=== PATIENT | male | born 1955 | race Caucasian/White ===

== ENCOUNTER 2020-05-15 09:49 | Outpatient (CLI) | payer BC, SELFPAY ==
[2020-05-15 10:21] LABS: Basophils Absolute Auto 0.1 K/mm3 (0.0-0.1); Eosinophils Absolute Auto 0.4 K/mm3 (0-0.3); Eosinophils Percent Auto 7.4 % (0-4.4); Hematocrit 45.2 % (42.0-52.0); Hemoglobin 15.2 g/dL (14.0-18.0); Immature Granulocyte Absolute 0.01 K/mm3 (0.00-0.031); Immature Granulocyte Percent A 0.2 % (0-0.5); Lymphocytes Percent Auto 21.9 % (18.3-44.2); Mean Corpuscular HGB Conc 33.6 g/dl (32-36); Mean Corpuscular Volume 92.1 fl (80-100); Mean Platelet Volume 9.9 fl (7.4-10.4); Monocytes Absolute Auto 0.6 K/mm3 (0.1-0.6); Monocytes Percent Auto 10.3 % (2.6-8.5); Neutrophils Absolute Auto 3.5 K/mm3 (1.3-6.7); Neutrophils Percent Auto 59.2 % (45.5-73.1); Platelet Count Result 217 k/mm3 (150-375); Red Blood Count 4.91 M/mm3 (4.6-6.20); Red Cell Distribution Width 13.3 % (11.5-14.5); White Blood Count 5.9 K/mm3 (4.5-10.0)
[2020-05-15 10:32] LABS: Prothrombin Time 12.7 Seconds (11.1-14.7)
[2020-05-15 10:33] LABS: Partial Thromboplastin Time 24.9 SECONDS (22.3-36.8)
[2020-05-15 10:34] LABS: Fibrinogen 173 mg/dl (215-510)
[2020-05-15 10:36] LABS: Alanine Aminotransferase 21 U/L (4-50); Albumin Level 4.1 g/dL (3.5-5.1); Alkaline Phosphatase 57 U/L (38-126); Aspartate Amino Transferase 25 U/L (17-59); Bilirubin,Total 0.3 mg/dL (0.2-1.3); Blood Urea Nitrogen 25 mg/dL (9-20); Carbon Dioxide 22 mmol/L (22-30); Chloride 105 mmol/L (98-107); Cholesterol 168 mg/dL (0-200); D Dimer 0.58 ug/mL (<0.48); Estimated Glomerular Filt Rate > 60; Glucose 116 mg/dL (75-110); HDL Direct 44 mg/dL; Potassium 3.9 mmol/L (3.4-5.0); Sodium 136 mmol/L (137-145); Triglycerides 188 mg/dL (<150)
[2020-05-15 10:47] LABS: LDL Cholesterol Direct 94 mg/dL
[2020-05-15 11:02] LABS: Free T4 Free Thyroxine 0.73 ng/mL (0.78-2.19)
[2020-05-15 11:07] LABS: Prostate Specific Antigen 3.7 ng/mL (< OR = 4.0)
== END 2020-05-15 09:50 | disposition home or self-care (01) ==
PROVIDERS: PCP Family Medicine; Visit Provider Nurse Practitioner Family
DX: I10 Essential (primary) hypertension (principal); E78.2 Mixed hyperlipidemia; I25.10 Atherosclerotic heart disease of native coronary artery without angina pectoris; Z79.82 Long term (current) use of aspirin; Z12.5 Encounter for screening for malignant neoplasm of prostate; Z86.711 Personal history of pulmonary embolism; Z13.0 Encounter for screening for diseases of the blood and blood-forming organs and certain disorders involving the immune mechanism; Z13.6 Encounter for screening for cardiovascular disorders; Z13.220 Encounter for screening for lipoid disorders; Z13.29 Encounter for screening for other suspected endocrine disorder; R80.9 Proteinuria, unspecified
CPT/HCPCS: 36415; 80053; 80061; 84153; 84439; 84443; 84480; 85025; 85380; 85384; 85610; 85730; G0103

== ENCOUNTER 2020-06-30 14:36 | Outpatient (CLI) | payer BC, SELFPAY ==
--- NOTE | ~2020-06-30 | XR_ITS ---
EXAMINATION: XR shoulder RT min 2V DATE: 06/30/2020 15:03 INDICATION: Right shoulder pain. TECHNIQUE: 4 views of right shoulder were obtained. COMPARISON: None. FINDINGS: Bone alignment is normal. No fracture. There is mild osteoarthritis of glenohumeral joint a nd acromioclavicular joint. IMPRESSION: 1. Mild polyarticular osteoarthritis. Reviewed, dictated and finalized at location B.
--- NOTE | ~2020-06-30 | XR_ITS ---
EXAMINATION: XR shoulder LT min 2V DATE: 06/30/2020 15:03 INDICATION: Left shoulder pain. TECHNIQUE: 4 views of left shoulder were obtained. COMPARISON: None. FINDINGS: Bone alignment is normal. No fracture. There is mild osteoarthritis of glenohumeral joint a nd acromioclavicular joint. IMPRESSION: 1. Mild polyarticular osteoarthritis. Reviewed, dictated and finalized at location B.
== END 2020-06-30 14:37 | disposition home or self-care (01) ==
LOC: ANHIMG 14:38
PROVIDERS: PCP Family Medicine; Visit Provider Nurse Practitioner Family
DX: M25.511 Pain in right shoulder (principal); M19.012 Primary osteoarthritis, left shoulder; M19.011 Primary osteoarthritis, right shoulder
CPT/HCPCS: 73030

== ENCOUNTER → 2021-01-11 12:59 | Outpatient (CLI) | payer MEDICARE, MEDICAID, SELFPAY ==
--- NOTE | ~2021-01-11 | MR_ITS ---
EXAMINATION: MR shoulder LT wo con DATE: 01/11/2021 13:43 INDICATION: Left shoulder pain and limited range of motion post pulling injury with audible pop occur ring during the summer. TECHNIQUE: Magnetic resonance imaging (MRI) of the left shoulder was performed without intravenous co ntrast. Sequences included axial PD-weighted FS FSE, coronal oblique PD-weighted FS FSE, coronal obli que T2-weighted FS FSE, sagittal PD-weighted FS FSE, and sagittal T1-weighted SE. COMPARISON: None. FINDINGS: Coracoacromial arch: The acromion undersurface is curved in morphology (type II). Small anterior subacromial spur at the a cromial insertion of the normal coracoacromial ligament. Moderate acromioclavicular osteoarthritis wi th promptly cephalad directed hypertrophic osteophytes. Rotator cuff: Complete full-thickness tear involving the entire supraspinatus and infraspinatus tendons occurring a long the superior and middle facets of the greater tuberosity. The tear margin and is retracted appro ximately 5 cm medially to the level of the rim of the glenoid. There is mild tendinopathy at the retr acted supraspinatus tear margin and moderate to severe tendinopathy at the retracted infraspinatus te ar margin. There is moderate associated fatty atrophy of the supraspinatus and infraspinatus muscle b ellies. There is also mild fatty atrophy of the teres minor muscle belly but with normal appearing te ndon. The rotator cuff tendon tear extends across the rotator cuff interval to involve the cephalad two thi rds of the lesser tuberosity footplate. The inferior portion of the subscapularis tendon and adjacent muscular insertion remain intact. The bursal side of the more cephalad portion of the subscapularis tendon also remains intact and contiguous with the intact transverse humeral ligament. There is moder ate subscapularis tendinopathy along the ragged appearing medially retracted tear margin which is loc ated near the anterior rim of the glenoid. Mild fatty atrophy of the cephalad aspect of the subscapul ash muscle belly. Biceps tendon, glenoid labrum and glenohumeral cartilage: Moderate tendinopathy and longitudinal split tearing of the long head biceps tendon which is medially subluxed from the intertubercular groove and across the lesser tuberosity subscapularis tendon tear defect. Degenerative tearing along the posterior superior glenoid labrum. There is partial thickness cartilage loss with smooth chondral surface along the cephalad third of the glenoid. Partial-thicknes s cartilage loss with chondral surface regularity along the cephalad aspect of the humeral head. Fluid: Small glenohumeral joint effusion which extends through the full-thickness rotator cuff tear into the subacromial/subdeltoid bursa. No loose osteochondral bodies. Bones/other: Cephalad subluxation of the humeral head with respect to the glenoid likely secondary to the rotator cuff tear with the apex of the humeral head now articulating with the undersurface of the acromion. N o fracture or pathologic marrow replacing process. Small partial-thickness tear involving a portion o f the proximal tendon slip in the anterior head of the deltoid with surrounding feathery muscular laci ma extending into the more distal muscle. IMPRESSION: 1. 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 2. Mild glenohumeral osteoarthritis with degenerative tearing of the posterior superior glenoid labru m. 3. Moderate grade strain with small partial-thickness tear involving one of the anterior intramuscula r tendon slips of the anterior deltoid. 4. Moderate acromioclavicular osteoarthritis.
== END ==
PROVIDERS: Visit Provider Nurse Practitioner Adult Health
DX: M19.012 Primary osteoarthritis, left shoulder (principal)
CPT/HCPCS: 73221

== ENCOUNTER 2021-01-19 14:47 | Outpatient (CLI) | payer MEDICARE, SELFPAY | END 2021-01-19 14:48 | disposition home or self-care (01) | LOC: ANHCOVIDVC 14:47 | DX: Z23 Encounter for immunization (principal) | CPT/HCPCS: 0001A; 91300 ==

== ENCOUNTER 2021-02-09 14:47 | Outpatient (CLI) | payer MEDICARE, SELFPAY | END 2021-02-09 14:48 | disposition home or self-care (01) | LOC: ANHCOVIDVC 14:47 | DX: Z23 Encounter for immunization (principal) | CPT/HCPCS: 0002A; 91300 ==

== ENCOUNTER 2021-07-12 09:15 | Outpatient (CLI) | payer MEDICARE, SELFPAY ==
[2021-07-12 10:04] LABS: Basophils Absolute Auto 0.1 K/mm3 (0.0-0.1); Basophils Percent Auto 1.2 % (0.2-1.2); Eosinophils Absolute Auto 0.5 K/mm3 (0-0.3); Eosinophils Percent Auto 8.7 % (0-4.4); Hematocrit 49.4 % (42.0-52.0); Hemoglobin 15.7 g/dL (14.0-18.0); Immature Granulocyte Absolute 0.01 K/mm3 (0.00-0.031); Immature Granulocyte Percent A 0.2 % (0-0.5); Lymphocytes Absolute Auto 1.26 K/mm3 (0.9-3.2); Mean Corpuscular HGB Conc 31.8 g/dl (32-36); Mean Corpuscular Hemoglobin 30.2 pg (26-34); Mean Platelet Volume 10.6 fl (7.4-10.4); Monocytes Absolute Auto 0.8 K/mm3 (0.1-0.6); Monocytes Percent Auto 13.2 % (2.6-8.5); Neutrophils Absolute Auto 3.4 K/mm3 (1.3-6.7); Neutrophils Percent Auto 55.7 % (45.5-73.1); Platelet Count Result 230 k/mm3 (150-375)
[2021-07-12 10:16] LABS: Alanine Aminotransferase 20 U/L (4-50); Albumin Level 4.4 g/dL (3.5-5.1); Alkaline Phosphatase 56 U/L (38-126); Anion Gap 7 mmol/L (8-16); Aspartate Amino Transferase 28 U/L (17-59); Bilirubin,Total 0.4 mg/dL (0.2-1.3); Blood Urea Nitrogen 31 mg/dL (9-20); Calcium 9.5 mg/dL (8.4-10.2); Carbon Dioxide 25 mmol/L (22-30); Chloride 104 mmol/L (98-107); Cholesterol 163 mg/dL (0-200); Estimated Glomerular Filt Rate 55; Glucose 114 mg/dL (65-110); HDL Direct 39 mg/dL; Potassium 4.4 mmol/L (3.4-5.0); Sodium 136 mmol/L (137-145); Triglycerides 144 mg/dL (<150)
[2021-07-12 10:27] LABS: LDL Cholesterol Direct 78 mg/dL
[2021-07-12 10:47] LABS: Prostate Specific Antigen 4.2 ng/mL (< OR = 4.0); Total Triiodothyronine (T3) 1.12 NG/ML (0.97-1.69)
[2021-07-12 10:57] LABS: Free T4 Free Thyroxine 0.73 ng/mL (0.78-2.19); Vitamin D 25 Hydroxy 37.6 ng/mL
== END 2021-07-12 09:16 | disposition home or self-care (01) ==
PROVIDERS: PCP Family Medicine; Visit Provider Nurse Practitioner
DX: I12.9 Hypertensive chronic kidney disease with stage 1 through stage 4 chronic kidney disease, or unspecified chronic kidney disease (principal); N18.2 Chronic kidney disease, stage 2 (mild); Z12.5 Encounter for screening for malignant neoplasm of prostate; E55.9 Vitamin D deficiency, unspecified; R80.9 Proteinuria, unspecified
CPT/HCPCS: 36415; 80053; 80061; 82306; 84153; 84439; 84443; 84480; 85025; G0103

== ENCOUNTER 2022-01-17 10:32 | Outpatient (CLI) | payer MEDICARE, SELFPAY ==
[2022-01-17 11:22] LABS: Alanine Aminotransferase 20 U/L (4-50); Albumin Level 4.3 g/dL (3.5-5.1); Alkaline Phosphatase 102 U/L (38-126); Anion Gap 5 mmol/L (8-16); Aspartate Amino Transferase 26 U/L (17-59); Bilirubin,Total 0.6 mg/dL (0.2-1.3); Blood Urea Nitrogen 31 mg/dL (9-20); Calcium 9.2 mg/dL (8.4-10.2); Carbon Dioxide 26 mmol/L (22-30); Chloride 102 mmol/L (98-107); Cholesterol 151 mg/dL (0-200); Creatine Kinase 144 U/L (55-170); Estimated Glomerular Filt Rate > 60; Glucose 114 mg/dL (65-110); HDL Direct 34 mg/dL; Potassium 4.4 mmol/L (3.4-5.0); Sodium 133 mmol/L (137-145); Triglycerides 261 mg/dL (<150)
[2022-01-17 11:33] LABS: LDL Cholesterol Direct 57 mg/dL
== END 2022-01-17 10:33 | disposition home or self-care (01) ==
PROVIDERS: PCP Nurse Practitioner; Visit Provider Hospitalist
DX: I25.10 Atherosclerotic heart disease of native coronary artery without angina pectoris (principal)
CPT/HCPCS: 36415; 80053; 80061; 82550

== ENCOUNTER 2022-11-26 12:10 | Outpatient (CLI) | payer MEDICARE, MEDICAID, SELFPAY ==
[2022-11-26 13:16] LABS: Basophils Percent Auto 0.8 % (0.2-1.2); Eosinophils Percent Auto 4.4 % (0-4.4); Hematocrit 45.9 % (42.0-52.0); Immature Granulocyte Percent A 0.3 % (0-0.5); Mean Corpuscular HGB Conc 32.7 g/dl (32-36); Mean Corpuscular Hemoglobin 29.6 pg (26-34); Mean Corpuscular Volume 90.5 fl (80-100); Mean Platelet Volume 10.2 fl (7.4-10.4); Monocytes Percent Auto 10.6 % (2.6-8.5); Neutrophils Percent Auto 63.9 % (45.5-73.1); Platelet Count Result 186 k/mm3 (150-375); Red Blood Count 5.07 M/mm3 (4.6-6.20); Red Cell Distribution Width 14.6 % (11.5-14.5); White Blood Count 6.4 K/mm3 (4.5-10.0)
[2022-11-26 13:17] LABS: Basophils Absolute Auto 0.1 K/mm3 (0.0-0.1); Eosinophils Absolute Auto 0.3 K/mm3 (0-0.3); Immature Granulocyte Absolute 0.02 K/mm3 (0.00-0.031); Lymphocytes Absolute Auto 1.27 K/mm3 (0.9-3.2); Monocytes Absolute Auto 0.7 K/mm3 (0.1-0.6); Neutrophils Absolute Auto 4.1 K/mm3 (1.3-6.7)
[2022-11-26 13:27] LABS: Alanine Aminotransferase 27 U/L (6-50); Albumin Level 4.1 g/dL (3.5-5.1); Alkaline Phosphatase 104 U/L (38-126); Anion Gap 7 mmol/L (8-16); Aspartate Amino Transferase 24 U/L (17-59); Bilirubin,Total 0.6 mg/dL (0.2-1.3); Blood Urea Nitrogen 18 mg/dL (9-20); Calcium 8.8 mg/dL (8.4-10.2); Carbon Dioxide 26 mmol/L (22-30); Chloride 103 mmol/L (98-107); Cholesterol 139 mg/dL (0-200); Creatine Kinase 112 U/L (55-170); Estimated Glomerular Filt Rate > 60; Glucose 111 mg/dL (65-110); HDL Direct 38 mg/dL; Potassium 4.1 mmol/L (3.4-5.0); Sodium 136 mmol/L (137-145); Triglycerides 259 mg/dL (<150)
[2022-11-26 13:37] LABS: LDL Cholesterol Direct 47 mg/dL
[2022-11-26 15:11] LABS: Hepatitis C Virus Antibody Negative (Negative)
== END 2022-11-26 12:11 | disposition home or self-care (01) ==
PROVIDERS: PCP Nurse Practitioner; Visit Provider Nurse Practitioner
DX: N40.1 Benign prostatic hyperplasia with lower urinary tract symptoms (principal); R35.1 Nocturia; R97.20 Elevated prostate specific antigen [PSA]; Z11.59 Encounter for screening for other viral diseases; E78.5 Hyperlipidemia, unspecified; I25.10 Atherosclerotic heart disease of native coronary artery without angina pectoris; I10 Essential (primary) hypertension
CPT/HCPCS: 36415; 80053; 80061; 82550; 84153; 85025; 86803

== ENCOUNTER 2023-08-11 14:12 | Outpatient (CLI) | payer MEDICARE, MEDICAID, SELFPAY ==
[2023-08-13 21:16] LABS: PSA, Free 0.62 ng/mL; PSA, Total 3.5 ng/mL (<=4.0); Percent Free Prostate Spec Ag 18 % (>25)
== END 2023-08-11 14:13 | disposition home or self-care (01) ==
PROVIDERS: PCP Nurse Practitioner
DX: R97.20 Elevated prostate specific antigen [PSA] (principal)
CPT/HCPCS: 36415; 84153; 84154

== ENCOUNTER 2024-02-03 09:45 | Outpatient (CLI) | payer MEDICARE, MEDICAID, SELFPAY ==
[2024-02-03 10:42] LABS: Basophils Absolute Auto 0.1 K/mm3 (0.0-0.1); Basophils Percent Auto 0.8 % (0.2-1.2); Eosinophils Absolute Auto 0.3 K/mm3 (0-0.3); Eosinophils Percent Auto 4.6 % (0-4.4); Hematocrit 50.6 % (42.0-52.0); Hemoglobin 16.1 g/dL (14.0-18.0); Immature Granulocyte Absolute 0.02 K/mm3 (0.00-0.031); Immature Granulocyte Percent A 0.3 % (0-0.5); Lymphocytes Absolute Auto 1.29 K/mm3 (0.9-3.2); Lymphocytes Percent Auto 17.9 % (18.3-44.2); Mean Corpuscular HGB Conc 31.8 g/dl (32-36); Mean Corpuscular Hemoglobin 29.8 pg (26-34); Mean Corpuscular Volume 93.7 fl (80-100); Monocytes Absolute Auto 0.7 K/mm3 (0.1-0.6); Monocytes Percent Auto 9.4 % (2.6-8.5); Neutrophils Absolute Auto 4.8 K/mm3 (1.3-6.7); Platelet Count Result 202 k/mm3 (150-375); Red Cell Distribution Width 14.2 % (11.5-14.5); White Blood Count 7.2 K/mm3 (4.5-10.0)
[2024-02-03 10:52] LABS: Alanine Aminotransferase 26 U/L (6-50); Albumin Level 4.2 g/dL (3.5-5.1); Alkaline Phosphatase 101 U/L (38-126); Anion Gap 5 mmol/L (8-16); Aspartate Amino Transferase 30 U/L (17-59); Bilirubin,Total 0.5 mg/dL (0.2-1.3); Blood Urea Nitrogen 22 mg/dL (9-20); CRP < 0.5 mg/dL (<1.0); Calcium 9.7 mg/dL (8.4-10.2); Carbon Dioxide 26 mmol/L (22-30); Chloride 104 mmol/L (98-107); Cholesterol 162 mg/dL (0-200); Estimated Glomerular Filt Rate > 60; Glucose 125 mg/dL (65-110); HDL Direct 37 mg/dL; Potassium 4.8 mmol/L (3.4-5.0); Sodium 135 mmol/L (137-145); Triglycerides 401 mg/dL (<150)
[2024-02-03 10:53] LABS: Rheumatoid Factor < 12.0 IU/ML (<12)
[2024-02-03 11:04] LABS: LDL Cholesterol Direct 72 mg/dL
[2024-02-03 11:14] LABS: Erythrocyte Sedimentation Rate 13 mm/hr (0-20)
[2024-02-03 11:45] LABS: Hemoglobin A1C 6.2 % (<5.7)
[2024-02-06 11:11] LABS: ANA Cascade Screen Negative (Negative)
== END 2024-02-03 09:46 | disposition home or self-care (01) ==
LOC: ANHLAB 09:53
PROVIDERS: PCP Nurse Practitioner; Visit Provider Nurse Practitioner
DX: I25.10 Atherosclerotic heart disease of native coronary artery without angina pectoris (principal); I10 Essential (primary) hypertension; R73.01 Impaired fasting glucose
CPT/HCPCS: 36415; 80053; 80061; 83036; 84443; 85025; 85652; 86038; 86140; 86225; 86235; 86364; 86430

== ENCOUNTER 2024-03-11 12:43 | Outpatient (CLI) | payer MEDICARE, MEDICAID, SELFPAY ==
--- NOTE | ~2024-03-11 | MR_ITS ---
EXAMINATION: MR lumbar spine wo con DATE: 03/11/2024 13:19 INDICATION: Low back pain. Degenerative disc disease. TECHNIQUE: Magnetic resonance imaging (MRI) of the lumbar spine was performed without intravenous con trast. Sequences included sagittal T2-weighted FSE, sagittal T2-weighted FS FSE, sagittal T1-weighted FSE, and axial T2-weighted FSE. COMPARISON: None FINDINGS: There is 5 degrees levocurvature of lumbar spine. There is 3 mm anterolisthesis of L3 on L4 and 3 mm retrolisthesis of L5 on S1. There is mild chronic anterior wedging of T12 vertebral body. T here is mildly decreased disc height at L2-L3 and L3-L4 and severely decreased disc height at L5-S1. The distal spinal cord signal intensity is normal. The conus medullaris is at L1-L2. The following di sc levels are specifically discussed: L1-L2: The disc is bulging. There is moderate bilateral facet joint osteoarthritis. There is no neura l foraminal stenosis. There is mild central canal stenosis. L2-L3: The disc is bulging. There is severe bilateral facet joint osteoarthritis. There is mild bilat eral neural foraminal stenosis. There is mild central canal stenosis. L3-L4: The disc is bulging and has an annular fissure. There is severe bilateral facet joint osteoart hritis. There is mild bilateral neural foraminal stenosis. There is severe central canal stenosis. L4-L5: The disc is bulging. There is severe bilateral facet joint osteoarthritis. There is mild bilat eral neural foraminal stenosis. There is mild central canal stenosis. L5-S1: The disc is bulging and has an annular fissure. There is severe bilateral facet joint osteoart hritis. There is mild bilateral neural foraminal stenosis. There is mild central canal stenosis. IMPRESSION: 1. Severe lumbar spondylosis. Reviewed, dictated and finalized at location E.
== END 2024-03-11 12:44 ==
LOC: MICIMG 12:45
PROVIDERS: PCP Nurse Practitioner; Visit Provider Nurse Practitioner
DX: M51.36 Other intervertebral disc degeneration, lumbar region (principal); M43.06 Spondylolysis, lumbar region
CPT/HCPCS: 72148

== ENCOUNTER 2024-05-06 11:39 | Outpatient (CLI) | payer MEDICARE, MEDICAID, SELFPAY ==
[2024-05-06 13:09] LABS: Prostate Specific Antigen 4.1 ng/mL (< OR = 4.0)
== END 2024-05-06 11:40 | disposition home or self-care (01) ==
PROVIDERS: PCP Nurse Practitioner
DX: R97.20 Elevated prostate specific antigen [PSA] (principal)
CPT/HCPCS: 36415; 84153

== ENCOUNTER 2024-08-04 18:13 | Emergency (ER) | payer MEDICARE, MEDICAID, SELFPAY ==
[2024-08-04 18:28] VITALS: BP 120/69; PULSE 65; RESP 16; TEMP 36.2; O2SAT 98
--- NOTE | 2024-08-04 19:18 | ED.MALEGU ---
HPI - Male Genitourinary General Chief complaint: Nausea/Vomiting/Diarrhea Stated complaint: Urinary retention Time Seen by Provider: 08/04/24 19:04 Source: patient and RN notes reviewed Mode of arrival: ambulatory Limitations: no limitations History of Present Illness HPI Narrative: Patient presents today complaining of retained urine. States he has voided a few times today, but only very small amounts. He is feeling significant pressure in his lower abdomen that his bladder is very full. States that typically when his bladder is very full, if he has a bowel movement he is then able to urinate well He has not yet had a bowel movement today, despite taking 3 Dulcolax pills. He had a normal bowel movement yesterday and one the day before. States he has only had 3 cups of coffee to drink today. Hx of overactive bladder and enlarged prostate. Related Data Home Medications Medication Instructions Recorded Confirmed albuterol sulfate 90 mcg/actuation 1 puff inhalation Q4H PRN 01/04/21 aerosol inhaler aspirin 325 mg tablet 325 mg PO DAILY 01/04/21 celecoxib 200 mg capsule 200 mg PO BID 01/04/21 fenofibrate micronized 200 mg 200 mg PO DAILY 01/04/21 capsule hydrochlorothiazide 25 mg tablet 25 mg PO DAILY 01/04/21 lisinopril 40 mg tablet 40 mg PO DAILY 01/04/21 metoprolol tartrate 100 mg tablet 100 mg PO Q12H 01/04/21 omeprazole 20 mg capsule,delayed 20 mg PO DAILY 01/04/21 release oxymetazoline 0.05 % nasal spray 2 spray intranasal Q12H PRN 01/04/21 (Afrin (oxymetazoline)) simvastatin 40 mg tablet 40 mg PO DAILY 01/04/21 finasteride 5 mg tablet mg 08/04/24 loratadine 10 mg tablet (Claritin) 10 mg PO DAILY 08/04/24 08/04/24 mirabegron 50 mg tablet,extended mg PO 08/04/24 release 24 hr (Myrbetriq) tamsulosin 0.4 mg capsule mg PO 08/04/24 Allergies Allergy/AdvReac Type Severity Reaction Status Date / Time No Known Allergies Allergy Verified 08/04/24 18:30 Review of Systems Review of Systems: CONSTITUTIONAL: Denies body aches, fever, chills, or sweats. EYES: Denies visual changes, redness, or discharge. ENT: Denies rhinorrhea, congestion, sore throat, or otalgia. CARDIOVASCULAR: Denies chest pain, palpitations, or edema. RESPIRATORY: Denies cough or dyspnea. GASTROINTESTINAL: Denies nausea, vomiting, or diarrhea. GENITOURINARY: + Bladder pressure, voiding small amounts SKIN: Denies rash, itching, or wounds. MUSCULOSKELETAL: Denies back pain, joint pain, or myalgia. NEUROLOGIC: Denies headache, numbness, tingling, or weakness. PSYCH: Denies depression or anxiety. FOR[facility]LY [facility] Past Medical History Medical History Benign essential hypertension BPH (benign prostatic hyperplasia) CAD (coronary artery disease) GERD (gastroesophageal reflux disease) Hx pulmonary embolism Hypercholesteremia Hyperlipidemia Hypertension Mixed hypercholesterolemia and hypertriglyceridemia Torn rotator cuff Family History Family History Father Family history of cardiovascular disease Mother Family history of malignant neoplasm Comments At time of signature, I have reviewed and agree with nursing past medical, surgical, social and family history unless otherwise noted. Please see nursing chart for further information. There is no relevant family history pertinent to the presenting complaint Exam Narrative: GENERAL: Well-appearing, well-nourished, and in no acute distress. HEAD: Normocephalic, atraumatic. EYES: EOMI. No redness or drainage. Conjunctivae normal. ENT: Mucous membranes pink and moist. NECK: Normal AROM. CHEST: No respiratory distress. Clear to auscultation. HEART: Regular rate and rhythm. No murmur appreciated. Normal peripheral pulses. ABDOMEN: Soft, nontender, nondistended, normal active bowel sounds. Pressure with palpation of suprapubic area. EXTREMITIES: Normal r
== END 2024-08-04 19:18 | disposition left against medical advice (07) ==
PROVIDERS: Emergency Provider Nurse Practitioner; PCP Nurse Practitioner
DX: R33.9 Retention of urine, unspecified (principal); I10 Essential (primary) hypertension; N40.0 Benign prostatic hyperplasia without lower urinary tract symptoms; I25.10 Atherosclerotic heart disease of native coronary artery without angina pectoris; K21.9 Gastro-esophageal reflux disease without esophagitis; E78.2 Mixed hyperlipidemia; Z86.711 Personal history of pulmonary embolism
CPT/HCPCS: 99211; G0463

== ENCOUNTER 2025-01-04 11:18 | Outpatient (CLI) | payer MEDICARE, MEDICAID, SELFPAY ==
--- OUTSIDE RECORDS SUMMARY | 2025-01-04 11:30 | XMS_ITS | Referral Summary ---
Author Organization [place] [id number] [facility] Address [address] [place] [address] Care Team Providers Care Corrections Cadet Name Role Phone Piper Solano MD Primary Care Provider [phone]- [phone] Allergies No known active allergies Medications tamsulosin (FLOMAX) 0.4 mg extended release capsule Take 2 capsules (0.8 mg total) by mouth daily 11/12/20 22 Active albuterol HFA (PROVENTIL HFA,VENTOLIN HFA,PROAIR HFA) 90 mcg/actuation inhaler INHALE 2 PUFFS BY MOUTH EVERY 6 HOURS NEEDED FOR WHEEZING FOR SHORTNESS OF BREATH 01/16/20 23 Active aspirin 325 mg tablet Take 1 tablet (325 mg total) by mouth daily 08/15/20 21 Active atorvastatin (LIPITOR) 40 mg tablet Take 1 tablet (40 mg total) by mouth nightly 01/01/20 23 Active azelastine (ASTELIN) 137 mcg (0.1 %) nasal spray USE 1 SPRAY(S) IN EACH NOSTRIL TWICE DAILY 08/27/20 22 Active celecoxib (CeleBREX) 200 mg capsule 11/25/19 23 Active fluticasone propionate (FLONASE) 50 mcg/actuation nasal spray Use 1 spray(s) in each nostril once daily 08/26/20 22 Active icosapent ethyL (VASCEPA) 1 gram capsule TAKE 2 CAPSULES BY MOUTH TWICE DAILY WITH FOOD 11/25/19 23 Active lisinopriL (PRINIVIL,ZEST RIL) 40 mg tablet 01/01/20 23 Active loratadine-pse udoephedrine (CLARITIN-D 24-hour) 10-240 mg per 24 hr tablet Take 1 tablet by mouth daily as needed Active metoprolol (LOPRESSOR) 100 mg tablet 01/01/20 23 Active mometasone (NASONEX) 50 mcg/actuation nasal spray USE 2 SPRAY(S) IN EACH NOSTRIL ONCE DAILY 01/07/20 23 Active nitroglycerin (NITROSTAT) 0.[address] 1 tablet (0.4 mg total) under the tongue every 5 (five) minutes as needed 08/15/20 21 Active omeprazole (PriLOSEC) 20 mg capsule Take 1 capsule (20 mg total) by mouth daily 01/16/20 23 Active finasteride (PROSCAR) 5 mg tablet Take 1 tablet (5 mg total) by mouth daily Active DULoxetine DR (CYMBALTA) 30 mg capsule Take 1 capsule (30 mg total) by mouth daily 03/03/20 24 Active hydroCHLOROthi azide (HYDRODIURIL) 25 mg tablet Take 1 tablet (25 mg total) by mouth daily 03/24/20 24 Active HYDROcodone-ac etaminophen (NORCO) 5-325 mg per tablet Take 1 tablet by mouth daily as needed 04/30/20 24 Active naloxone (NARCAN) 4 mg/actuation spray,non-aero brain Administer 1 spray into affected nostril(s) as needed 03/03/20 24 Active oxyBUTYnin XL (DITROPAN-XL) 10 mg 24 hr tablet Take 1 tablet (10 mg total) by mouth daily 30 tablet 11 07/21/20 24 025 Active Myrbetriq 50 mg tablet extended release 24 hr Take 1 tablet by mouth once daily 30 tablet 12/28/19 25 Active Myrbetriq 50 mg tablet extended release 24 hr Take 1 tablet by mouth once daily 30 tablet 12/02/19 25 025 Discontinued Active Problems Problem Noted Date Diagnosed Date Morbid (severe) obesity due to excess calories 1 CAD (coronary artery disease) 01/21/2023 Dyslipidemia 01/21/2023 Essential hypertension 01/21/2023 Benign prostatic hyperplasia with nocturia 08/15 Incontinence of feces 08/15/2022 Cigarette smoker 08/16/2021 Gastroesophageal reflux disease 08/16/2021 Obesity (BMI 35.0-39.9 without comorbidity) 07/20 Sinus congestion 08/16/2021 Social History Tobacco Use Types Packs/Day Years Used Date Smoking Tobacco: Every Day Cigarettes Tobacco Cessation:Ready to Q uit: Not Asked; Counseling Given: Not Answered AUDIT-C Answer Date Recorded Q1: How often do you have a drink containing alc ohol? 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 Gender Identity Not on file Sexual Orientation Not on file Plan of Treatment Not on file Procedures Procedure Name Priority Date/Time Associated Diagnosis Comments PSA DIAGNOSTIC Routine 05/06/2024 Elevated PSA from Last 3 Months or Most Recently Relevant to Health Maintenance Results * (ABNORMAL) PSA diagnostic (05/06/2024) SCRIBED PSA, Serum 4.1(A) 0.0 - 4.0 EXTERNAL LAB Blood 05/06/2024 us Jarocho Guzman MD LAB BLOOD ORDERABLES Final Resul t EXTERNAL LAB from Last 3 Months or Most Recently Relevant to Health Maintenance Insurance MEDICARE SOLUTIONS [facility] MEDICARE Address: [facility] [address] [place] [address] [employer] MEDIC[employer] [facility] MEDICARE Address: [address] [address] [place] [address] [facility] Care Teams Corrections Cadet Relationship Specialty Start Date End Date Piper Solano MD [address] [address] PCP - General Nurse Practitioner 11/29/22
--- OUTSIDE RECORDS SUMMARY | 2025-01-04 11:30 | XMS_ITS | Clinical Summary ---
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 Gender Identity Not on file Sexual Orientation Not on file Obstetrics History Plan of Treatment Health Maintenance Due Date Last Done Comments Colon Cancer Screening-Colonoscopy 1955 Depression Screening 1955 Fall Risk Assessment 1955 Hepatitis C Screening 1955 Hepatitis B Screening 1973 Zoster Vaccine (1 of 2) 2005 Abdominal Aortic Aneurysm (AAA) Screen 2020 Well Visit 65+ 2020 Pneumococcal vaccine 65+ (2 of 2 - PCV) 02/04/2023 0 02/04/2022 Covid-19 Vaccine ( - 2023- season) 2024, 01/19/2021 Influenza Vaccine (#1) 2024 Prostate Cancer Screening-PSA 05/06/2026 05/06/2024, 08/11/2023 DTaP/Tdap/Td Vaccine (2 - Td or Tdap) 02/05/2032 Procedures Procedure Name Priority Date/Time Associated Diagnosis [...] Relevant to Health Maintenance Insurance MEDICARE SOLUTIONS [facility] MEDICARE SOLUTIONS [facility] Care Teams Associate Software Engineer Relationship Specialty Start Date End Date Piper Solano MD [address] [place] [address] PCP - General Nurse Practitioner 11/29/22
[2025-01-04 12:06] LABS: Basophils Absolute Auto 0.1 K/mm3 (0.0-0.1); Basophils Percent Auto 0.8 % (0.2-1.2); Eosinophils Absolute Auto 0.4 K/mm3 (0-0.3); Eosinophils Percent Auto 5.9 % (0-4.4); Hematocrit 48.3 % (42.0-52.0); Hemoglobin 15.5 g/dL (14.0-18.0); Immature Granulocyte Absolute 0.02 K/mm3 (0.00-0.031); Immature Granulocyte Percent A 0.3 % (0-0.5); Lymphocytes Absolute Auto 1.14 K/mm3 (0.9-3.2); Lymphocytes Percent Auto 17.2 % (18.3-44.2); Mean Corpuscular HGB Conc 32.1 g/dl (32-36); Mean Corpuscular Volume 90.4 fl (80-100); Monocytes Absolute Auto 0.9 K/mm3 (0.1-0.6); Monocytes Percent Auto 13.3 % (2.6-8.5); Neutrophils Absolute Auto 4.1 K/mm3 (1.3-6.7); Neutrophils Percent Auto 62.5 % (45.5-73.1); Platelet Count Result 202 k/mm3 (150-375); Red Blood Count 5.34 M/mm3 (4.6-6.20); Red Cell Distribution Width 15.4 % (11.5-14.5); White Blood Count 6.6 K/mm3 (4.5-10.0)
[2025-01-04 12:17] LABS: INR 0.9; Prothrombin Time 12.6 Seconds (11.1-14.7)
[2025-01-04 12:18] LABS: Hemoglobin A1C 6.1 % (<5.7)
[2025-01-04 12:20] LABS: Alanine Aminotransferase 37 U/L (6-50); Albumin Level 3.9 g/dL (3.5-5.1); Alkaline Phosphatase 99 U/L (38-126); Anion Gap 10 mmol/L (4-12); Aspartate Amino Transferase 30 U/L (17-59); Bilirubin,Total 0.6 mg/dL (0.2-1.3); Blood Urea Nitrogen 23 mg/dL (9-20); Calcium 8.9 mg/dL (8.4-10.2); Carbon Dioxide 23 mmol/L (22-30); Chloride 104 mmol/L (98-107); Cholesterol 144 mg/dL (0-200); Estimated Glomerular Filt Rate > 60; Glucose 112 mg/dL (65-110); HDL Direct 47 mg/dL; Potassium 4.4 mmol/L (3.4-5.0); Sodium 137 mmol/L (137-145); Triglycerides 233 mg/dL (<150)
[2025-01-04 12:31] LABS: LDL Cholesterol Direct 60 mg/dL
[2025-01-04 12:51] LABS: Prostate Specific Antigen 4.6 ng/mL (< OR = 4.0)
== END 2025-01-04 11:19 | disposition home or self-care (01) ==
PROVIDERS: PCP Nurse Practitioner
DX: I25.10 Atherosclerotic heart disease of native coronary artery without angina pectoris (principal); I10 Essential (primary) hypertension; R73.03 Prediabetes; E78.5 Hyperlipidemia, unspecified; Z12.5 Encounter for screening for malignant neoplasm of prostate
CPT/HCPCS: 36415; 80053; 80061; 83036; 84153; 84443; 85025; 85610; G0103

== ENCOUNTER 2025-01-18 14:31 | Outpatient (CLI) | payer MEDICARE, MEDICAID, SELFPAY ==
[2025-01-18 15:23] LABS: Hematocrit 47.3 % (42.0-52.0); Hemoglobin 15.5 g/dL (14.0-18.0)
[2025-01-18 15:48] LABS: Blood Urea Nitrogen 25 mg/dL (9-20); Estimated Glomerular Filt Rate > 60
== END 2025-01-18 14:32 | disposition home or self-care (01) ==
PROVIDERS: PCP Nurse Practitioner; Visit Provider Internal Medicine Cardiovascular Disease
DX: I25.10 Atherosclerotic heart disease of native coronary artery without angina pectoris (principal); R06.09 Other forms of dyspnea
CPT/HCPCS: 36415; 82565; 84520; 85014; 85018

== ENCOUNTER 2025-07-21 13:29 | Emergency (ER) | payer MEDICARE, MEDICAID, SELFPAY ==
--- NOTE | ~2025-07-21 | XR_ITS ---
XR chest 2V 07/21/2025 13:52 Indication: Hemoptysis. Shortness of breath. Procedure: 2 view chest Comparison: 02/28/2016 Findings: There is left upper lobe pneumonia. Heart size normal. Right lung clear. No pleural effusion or pneumothorax. No edema. There is dextro scoliosis of the thoracic spine. Impression: 1: Left upper lobe pneumonia. Reviewed, dictated and finalized at location O. Impression: 1: Left upper lobe pneumonia.
--- OUTSIDE RECORDS SUMMARY | 2025-07-21 13:38 | XMS_ITS | Clinical Summary ---
Author Organization [place] [id number] [facility] Address [address] [place] [address] Care Team Providers Care Follow Up Manager Name Role Phone Piper Solano MD Primary Care Provider +1- [phone] Allergies No known active allergies Medications tamsulosin (FLOMAX) 0.4 mg extended release capsule Take 2 capsules (0.8 mg total) by mouth daily 2 Active albuterol HFA (PROVENTIL HFA,VENTOLIN HFA,PROAIR HFA) 90 mcg/actuation inhaler INHALE 2 PUFFS BY MOUTH EVERY 6 HOURS NEEDED FOR WHEEZING FOR SHORTNESS OF BREATH 3 Active aspirin 325 mg tablet Take 1 tablet (325 mg total) by mouth daily 1 Active atorvastatin (LIPITOR) 40 mg tablet Take 1 tablet (40 mg total) by mouth nightly 3 Active azelastine (ASTELIN) 137 mcg (0.1 %) nasal spray USE 1 SPRAY(S) IN EACH NOSTRIL TWICE DAILY 2 Active celecoxib (CeleBREX) 200 mg capsule 3 Active fluticasone propionate (FLONASE) 50 mcg/actuation nasal spray Use 1 spray(s) in each nostril once daily 2 Active icosapent ethyL (VASCEPA) 1 gram capsule TAKE 2 CAPSULES BY MOUTH TWICE DAILY WITH FOOD 3 Active lisinopriL (PRINIVIL,ZESTR [place]) 40 mg tablet 3 Active loratadine-pseu doephedrine (CLARITIN-D 24-hour) 10-240 mg per 24 hr tablet Take 1 tablet by mouth daily as needed Active metoprolol (LOPRESSOR) 100 mg tablet 3 Active mometasone (NASONEX) 50 mcg/actuation nasal spray USE 2 SPRAY(S) IN EACH NOSTRIL ONCE DAILY 3 Active nitroglycerin (NITROSTAT) 0.[address] 1 tablet (0.4 mg total) under the tongue every 5 (five) minutes as needed 1 Active omeprazole (PriLOSEC) 20 mg capsule Take 1 capsule (20 mg total) by mouth daily 3 Active finasteride (PROSCAR) 5 mg tablet Take 1 tablet (5 mg total) by mouth daily Active DULoxetine DR (CYMBALTA) 30 mg capsule Take 1 capsule (30 mg total) by mouth daily 4 Active hydroCHLOROthia zide (HYDRODIURIL) 25 mg tablet Take 1 tablet (25 mg total) by mouth daily 4 Active HYDROcodone-nader taminophen (NORCO) 5-325 mg per tablet Take 1 tablet by mouth daily as needed 4 Active naloxone (NARCAN) 4 mg/actuation spray,non-aeros ol Administer 1 spray into affected nostril(s) as needed 4 Active oxyBUTYnin XL (DITROPAN-XL) 10 mg 24 hr tablet Take 1 tablet (10 mg total) by mouth daily 30 tablet 11 4 Active Myrbetriq 50 mg tablet extended release 24 hr Take 1 tablet by mouth once daily 30 tablet 1 5 Active Active Problems Problem Noted Date Diagnosed Date Morbid (severe) obesity due to excess calories 1 CAD (coronary artery disease) 01/21/2023 Dyslipidemia 01/21/2023 Essential hypertension 01/21/2023 Benign prostatic hyperplasia with nocturia 08/15 Incontinence of feces 08/15/2022 Cigarette smoker 08/16/2021 Gastroesophageal reflux disease 08/16/2021 Obesity (BMI 35.0-39.9 without comorbidity) 07/20 Sinus congestion 08/16/2021 Encounters Date Type Department Care Team Description 04/25/2025 Telephone [facility] Medicine [facility] Surgery [address] [place] [phone] Maren Islas RMA from Last 3 Months Social History Tobacco Use Types Packs/Day Years [...] on file 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 Gender Identity Not on file Sexual Orientation [...] - PCV) 02/04/2023 0 02/04/2022 Covid-19 Vaccine (3 - season) 2024, 01/19/2021 Influenza Vaccine (#1) 2025 Prostate Cancer Screening-PSA 05/06/2026 05/06/2024, 08/11/2023 DTaP/Tdap/Td Vaccine (2 - Td or Tdap) 02/05/2032 Procedures Procedure Name Priority Date/Time Associated Diagnosis Comments PSA DIAGNOSTIC Routine 05/06/2024 Elevated PSA from Last 3 Months or Most Recently Relevant to Health Maintenance Results * (ABNORMAL) PSA diagnostic (05/06/2024) SCRIBED PSA, Serum 4.1(A) 0.0 - 4.0 EXTERNAL LAB Blood 05/06/2024 Jarocho Guzman MD LAB BLOOD ORDERABLES Final Resul t EXTERNAL LAB from Last 3 Months or Most Recently Relevant to Health Maintenance Insurance [employer] MEDICARE ADVANTAGE [employer] [id number] [place] [id number] Care Teams Follow Up Manager Relationship Specialty Start Date End Date Piper Solano MD [address] [place] [id number] PCP - General Nurse Practitioner 11/29/22
[2025-07-21 13:42] VITALS: BP 132/91; PULSE 93; RESP 20; TEMP 36.6; O2SAT 99
--- NOTE | 2025-07-21 13:49 | ED_ITS ---
HPI - SOB/Dyspnea General Chief Complaint: Chest Pain Stated Complaint: chest pain Time Seen by Provider: 07/21/25 13:40 Source: patient Mode of arrival: ambulatory Limitations: no limitations History of Present Illness HPI Narrative: Tony is a 69-year-old male patient presenting to the clinic today with complaints of shortness of breath on exertion, coughing up blood on Friday, and left-sided chest discomfort since Friday. States he is coughing up some brown phlegm as well. He is a current smoker. Has been taking aspirin and Tylenol for his symptoms. Denies any fevers, chills, or body aches. Contacted his PCP and they recommend he come into the [facility] for a chest x-ray. States on or Friday he saw his fire crew specialist at [facility]. History of PE, coronary artery disease, hyperlipidemia, and hypertension Related Data Home Medications ?Medication ?Instructions ?Recorded ?Confirmed ?Last Taken ?Type albuterol sulfate 90 mcg/actuation 1 puff inhalation Q 4H PRN 01/04/21 Unknown History aerosol inhaler aspirin 325 mg tablet 325 mg PO DAILY 01/04/21 Un known History celecoxib 200 mg capsule 200 mg PO BID 01/04/21 Unkn own History fenofibrate micronized 200 mg 200 mg PO DAILY 01/04/21 Unknown History capsule hydrochlorothiazide 25 mg tablet 25 mg PO DAILY Unknown History lisinopril 40 mg tablet 40 mg PO DAILY 01/04/21 Unk nown History metoprolol tartrate 100 mg tablet 100 mg PO Q12H 01/04 Unknown History omeprazole 20 mg capsule,delayed 20 mg PO DAILY Unknown History release simvastatin 40 mg tablet 40 mg PO DAILY 01/04/21 Unk nown History finasteride 5 mg tablet mg 08/04/24 Unknown History loratadine 10 mg tablet (Claritin) 10 mg PO DAILY 07/1808/04/24 Unknown History mirabegron 50 mg tablet,extended mg PO 08/04/24 Unkno wn History release 24 hr (Myrbetriq) tamsulosin 0.4 mg capsule mg PO 08/04/24 Unknown Hist ory icosapent ethyl 1 gram capsule g PO 07/21/25 Unknown History (Vascepa) mometasone 50 mcg/actuation nasal intranasal 07/21/25 Unknown History spray Allergies Allergy/AdvReac Type Severity Reaction Status Date / Time No Known Allergies Allergy Verified 07/21/25 14:04 Review of Systems Review of Systems: Pertinent positives per HPI. Patient denies any fever, chills, rash, headache, visual changes, dizziness, palpitations, nausea, vomiting, diarrhea, constipation, abdominal pain, or any urinary issues. [facility] Past Medical History Medical History Torn rotator cuff Hyperlipidemia CAD (coronary artery disease) Hx pulmonary embolism Mixed hypercholesterolemia and hypertriglyceridemia Benign essential hypertension Hypertension Hypercholesteremia BPH (benign prostatic hyperplasia) GERD (gastroesophageal reflux disease) Family History Family History Father Family history of cardiovascular disease Mother Family history of malignant neoplasm Comments At the time of my signature, I reviewed and agree with the nursing past medical, surgical, social, and family history. There is no relevant family history pertinent to the patient complaint. Exam Narrative: General: Well-developed, obese, in no apparent distress Head: Normocephalic, atraumatic Eyes: Pupils equally round and reactive to light bilaterally, EOM intact, sclera and conjunctive clear, no discharge, lids normal Ears: TMs intact and clear, ear canals clear, no drainage, grossly hearing normal. Nose: Nares patent, clear nasal discharge, no inflammation, no sinus tenderness. Mouth: Oral pharynx without lesions or masses, good dentition, MMM. Neck: Supple, trachea midline, no enlargement of anterior or posterior cervical nodes, no thyroid masses or goiter palpable. Cardio: Regular rate and rhythm, s1 and s2 normal, no murmur appreciated. Resp: Crackles over the left upper lobe, no rhonchi, wheezing or rubs Course Course Emergency Course: Portions of this record may have been created with voice recognition software. Level of Care: Express Care Visit Vital Signs Vital signs: Vital Signs Temperature 36.6 C 07/21/25 13:42 Pulse Rate 93 07/21/25 13:42 Respiratory Rate 20 07/21/25 13:42 Blood Pressure 132/91 H 07/21/25 13:42 Pulse Oximetry 99 07/21/25 13:42 Oxygen Delivery Room Air 07/21/25 13:42 Temperature 36.6 C 07/21/25 13:42 Pulse Rate 93 07/21/25 13:42 Respiratory Rate 20 07/21/25 13:42 Blood Pressure 132/91 H 07/21/25 13:42 Pulse Oximetry 99 07/21/25 13:42 Oxygen Delivery Room Air 07/21/25 13:42 Vital signs reviewed MDM - SOB/Dyspnea MDM Narrative Medical decision making narrative: At the time of visit patient is resting comfortably on the exam table. Patient appears to be nontoxic. Complaints of shortness of breath on exertion, coughing up blood on Friday, and left-sided chest discomfort since Friday. States he is coughing up some brown phlegm as well. He is a current smoker. Has been taking aspirin and Tylenol for his symptoms. Denies any fevers, chills, or body aches. Contacted his PCP and they recommend he come into the Express [facility] for a chest x-ray. States on or Friday he saw his fire crew specialist at [facility]. History of PE, hyperlipidemia, hypertension, coronary artery disease, EKG, Chest x-ray, and COVID testing was ordered. Patient reports he has only coughed up some blood on Friday but has not coughed up any blood since then. On exam patient has clear nasal drainage, crackles in the left upper lobe, no rubs, wheezing, or rhonchi. Oxygen saturations 99% on room air patient is able speak in full sentences. Heart rate regular rate rhythm, No peripheral edema. Vital signs reviewed and stable. EKG: EKG shows sinus rhythm with a heart rate of 94 beats per minute. Labs: COVID testing was negative in the clinic today. Diagnostics: Chest x-ray shows left upper lobe pneumonia. Plan: Patient has left-sided chest discomfort and shortness of breath likely due to left upper lobe pneumonia. Patient does have history of PE and has a moderate Wells criteria score of 2.5 which gives him a 16.2 chance of a PE in in ED population. Explained this to the patient he does not feels though he has a PE. Offer to send patient to the ER for further evaluation and he declined. States it does not feel the same as when he had a blood clot. Patient's oxygenation is 99% on room air patient is not tachycardic. Patient reports he is only short of breath with exertion. Will send in prescription for azithromycin, Augmentin, and albuterol inhaler. Incentive spirometer was given to the patient. Explained to the patient if he develops any worsening of symptoms he needs to go the emergency room and he voiced understanding. Supportive measures were discussed with the patient and they voiced understanding discharge instructions and agrees to treatment plan. Return precautions reviewed Well Criteria for PE: 2.5?points Moderate risk group: 16.2% chance of PE in an ED population. Another study assigned scores <= as ?PE Unlikely? and had a 3% incidence of PE. Lab Data Labs: Lab Results 07/21/25 Range/Units 14:06 POC SARS CoV-2 Ag Negative (Negative) Imaging Data Radiologist's impression: ITS Impressions Chest X-Ray 07/21/25 13:59 Impression: 1: Left upper lobe pneumonia. ECG Data EKG #1: Attestation: I personally reviewed and interpreted this ECG as follows: ECG completion date: 07/21/25 ECG completion time: 13:37 Prior ECG tracings: available for review Interpretation: EKG shows sinus rhythm heart rate 94 beats per minute. AL interval is 131 milliseconds, QRS durations 126 milliseconds, QT-QTC is 357-for her 9 milliseconds, P-R-T axis is -16 [phone] 27 Discharge Plan Discharge Clinical Impression: Left upper lobe pneumonia Qualifiers: Pneumonia type: due to unspecified organism Qualified Code(s): J18.9 - Pneumonia, unspecified organism Patient Disposition: Home Condition: Stable Instructions: Antibiotic Form, Pneumonia (ED) Additional Instructions: Chest x-ray shows a left upper lobe pneumonia. Take prescription medications only as prescribed-azithromycin, Augmentin, and albuterol inhaler Use incentive spirometer every 2 hours while Increase fluids and stay well hydrated May take Tylenol or motrin as directed on bottle for pain/fever Go to the ED if you develop a worsening in your condition- high fever not controlled by Tylenol or Motrin, dehydration, weakness, lethargy, confusion, worsening of shortness of breath, or chest pain. Follow up with your PCP in 3-5 days if symptoms Patient Language: French Prescriptions: New azithromycin 250 mg tablet See Rx Instructions .ROUTE .COMPLEX Qty: 6 0RF Rx Instructions: For 250 mg dose pack: take 500 mg today (day 1), then 250 mg for 4 days (days 2-5) amoxicillin-pot clavulanate 875-125 mg tablet 1 tablet PO Q12H 7 Days Qty: 14 0RF albuterol sulfate 90 mcg/actuation HFA aerosol inhaler 2 puff inhalation Q4-6H PRN (Reason: shortness of breath or wheezing) 30 Days Qty: 8.5 0RF No Action mometasone 50 mcg/actuation spray,non-aerosol INTRANASAL icosapent ethyl [Vascepa] 1 gram capsule PO tamsulosin 0.4 mg capsule PO finasteride 5 mg tablet loratadine [Claritin] 10 mg Tablet 10 mg PO DAILY mirabegron [Myrbetriq] 50 mg tablet extended release 24 hr PO simvastatin 40 mg tablet 40 mg PO DAILY fenofibrate micronized 200 mg capsule 200 mg PO DAILY lisinopril 40 mg tablet 40 mg PO DAILY hydrochlorothiazide 25 mg tablet 25 mg PO DAILY celecoxib 200 mg capsule 200 mg PO BID metoprolol tartrate 100 mg tablet 100 mg PO Q12H albuterol sulfate 90 mcg/actuation HFA aerosol inhaler 1 puff inhalation Q4H PRN aspirin 325 mg tablet 325 mg PO DAILY omeprazole 20 mg capsule,delayed release(DR/EC) 20 mg PO DAILY Follow-up/Referrals: Xiomara,MARGARET Elise [Primary Care Provider, Unknown] Time of Disposition: 14:06 Quality NIHSS Nursing Documentation ED NIHSS nursing documentation: reviewed/agree
--- NOTE | 2025-07-21 13:58 | ECG_ITS ---
Test Date: 2025-07-21 13:37:16 Measurements Intervals [place] Rate: 94 P: -16 MT: 131 QRS: 49 QRSD: 126 T: 27 QT: 357 QTc: 448 Interpretive Statements SINUS RHYTHM RIGHT BUNDLE-BRANCH BLOCK No previous ECG available for comparison Electronically Signed On 07-22-2025 12:11:22 CDT by Boubacar Siddiqui M.D.
[2025-07-21 14:06] LABS: EDCOVIDSCREEN Negative (Negative)
== END 2025-07-21 14:10 | disposition home or self-care (01) ==
PROVIDERS: Emergency Provider Nurse Practitioner Family; PCP Nurse Practitioner
DX: J18.9 Pneumonia, unspecified organism (principal); Z20.822 Contact with and (suspected) exposure to COVID-19; I25.10 Atherosclerotic heart disease of native coronary artery without angina pectoris; I10 Essential (primary) hypertension; N40.0 Benign prostatic hyperplasia without lower urinary tract symptoms; E78.00 Pure hypercholesterolemia, unspecified; E78.1 Pure hyperglyceridemia; K21.9 Gastro-esophageal reflux disease without esophagitis; Z79.82 Long term (current) use of aspirin
CPT/HCPCS: 71046; 87426; 93005; 99213; G0463

== ENCOUNTER 2025-09-26 08:43 | Outpatient (CLI) | payer MEDICARE, MEDICAID, SELFPAY ==
--- OUTSIDE RECORDS SUMMARY | 2025-09-26 09:07 | XMS_ITS | Clinical Summary ---
Author Organization [place] [id number] [facility] Address [address] [place] [address] Care Team Providers Care Bond Manager Name Role Phone Piper Solano MD Primary Care Provider [phone] Allergies No known active allergies Medications tamsulosin [...] on file Legal Sex Male 4:04 AM [employer] Gender Identity Not on file Sexual Orientation Not on file Plan of Treatment Health Maintenance Due Date Last Done Comments Colon Cancer Screening-Colonoscopy 1955 Depression Screening 1955 Fall Risk Assessment 1955 Hepatitis C Screening 1955 Hepatitis B Screening 1973 Zoster Vaccine (1 of 2) 2005 Abdominal Aortic Aneurysm (AAA) Screen 2020 Well Visit 65+ 2020 Pneumococcal vaccine 65+ (2 of 2 - PCV) 02/04/2023 0 02/04/2022 Covid-19 Vaccine (3 - season) 2025, 01/19/2021 Influenza Vaccine (#1) 2025 Prostate Cancer [...] Most Recently Relevant to Health Maintenance Insurance [facility] MEDICARE ADVANTAGE [place] [facility] [place] [id number] Care Teams Bond Manager Relationship Specialty Start Date End Date Piper Solano MD [address] [place] [id number] PCP - General Nurse Practitioner 11/29/22
[2025-09-26 09:17] LABS: Hematocrit 45.0 % (42.0-52.0); Hemoglobin 14.9 g/dL (14.0-18.0); Immature Granulocyte Percent A 0.5 % (0-0.5); Lymphocytes Absolute Auto 1.95 K/mm3 (0.9-3.2); Mean Corpuscular HGB Conc 33.1 g/dl (32-36); Mean Corpuscular Hemoglobin 29.9 pg (26-34); Mean Corpuscular Volume 90.2 fl (80-100); Nucleated Red Blood Cells Absolute Auto 0.000 K/mm3 (0.0-0.012); Nucleated Red Blood Cells Perc 0.0 % (0.0-0.2); Platelet Count Result 269 k/mm3 (150-375); Red Blood Count 4.99 M/mm3 (4.6-6.20); White Blood Count 13.2 K/mm3 (4.5-10.0)
[2025-09-26 09:23] LABS: Hemoglobin A1C 5.9 % (<5.7)
[2025-09-26 09:27] LABS: Alanine Aminotransferase 21 U/L (6-50); Albumin Level 3.8 g/dL (3.5-5.1); Alkaline Phosphatase 70 U/L (38-126); Anion Gap 8 mmol/L (4-12); Aspartate Amino Transferase 24 U/L (17-59); Bilirubin,Total 0.5 mg/dL (0.2-1.3); Blood Urea Nitrogen 28 mg/dL (9-20); Calcium 8.9 mg/dL (8.4-10.2); Carbon Dioxide 19 mmol/L (22-30); Chloride 104 mmol/L (98-107); Estimated Glomerular Filt Rate > 60; Glucose 116 mg/dL (65-110); Potassium 4.6 mmol/L (3.4-5.0); Sodium 131 mmol/L (137-145); Total Protein 6.9 g/dL (6.3-8.2)
[2025-09-26 10:02] LABS: Prostate Specific Antigen 2.3 ng/mL (< OR = 4.0)
[2025-09-26 10:07] LABS: Thyroid Stimulating Hormone Reflex 2.210 uIU/mL (0.465-4.68)
== END 2025-09-26 08:44 | disposition home or self-care (01) ==
LOC: ANHLAB 08:48
PROVIDERS: PCP Nurse Practitioner; Visit Provider Nurse Practitioner
DX: R73.03 Prediabetes (principal); I10 Essential (primary) hypertension; Z12.5 Encounter for screening for malignant neoplasm of prostate
CPT/HCPCS: 36415; 80053; 83036; 84153; 84443; 85025; G0103

== ENCOUNTER 2025-10-31 14:28 | Outpatient (CLI) | payer MEDICARE, MEDICAID, SELFPAY ==
[2025-10-31 14:57] LABS: Hematocrit 46.6 % (42.0-52.0); Hemoglobin 15.4 g/dL (14.0-18.0); Immature Granulocyte Percent A 0.3 % (0-0.5); Lymphocytes Absolute Auto 1.50 K/mm3 (0.9-3.2); Mean Corpuscular HGB Conc 33.0 g/dl (32-36); Mean Corpuscular Hemoglobin 30.0 pg (26-34); Mean Corpuscular Volume 90.7 fl (80-100); Nucleated Red Blood Cells Absolute Auto 0.000 K/mm3 (0.0-0.012); Nucleated Red Blood Cells Perc 0.0 % (0.0-0.2); Platelet Count Result 242 k/mm3 (150-375); Red Blood Count 5.14 M/mm3 (4.6-6.20); White Blood Count 8.9 K/mm3 (4.5-10.0)
== END 2025-10-31 14:29 | disposition home or self-care (01) ==
PROVIDERS: PCP Nurse Practitioner; Visit Provider Nurse Practitioner
DX: D72.829 Elevated white blood cell count, unspecified (principal)
CPT/HCPCS: 36415; 85025